=== PATIENT | female | born 1965 | race Caucasian/White ===

== ENCOUNTER → 2016-04-26 | Outpatient (CLI) | payer OTHER ==
[2016-04-26 12:10] LABS: BASO % 0.6 % (0.0-1.0); EOS # 0.7 K/mm3 (0.0-0.50); EOS % 9.4 % (0.0-3.0); LARGE UNSTAINED CELL % 0.6 % (0.0-4.0); LYMPH # 1.4 K/mm3 (1.5-4.5); LYMPH % 19.4 % (24.0-44.0); MEAN CORPUSCULAR HEMOGLOBIN 30.8 pg (27.0-33.0); MEAN CORPUSCULAR HGB CONC 32.6 g/dl (32.0-36.5); MEAN CORPUSCULAR VOLUME 94.7 fl (80.0-96.0); MONO # 0.4 K/mm3 (0.0-0.8); MONO % 5.3 % (0.0-5.0); NEUTROPHILS # 4.6 K/mm3 (1.8-7.7); NEUTROPHILS % 64.7 % (36.0-66.0); PLATELET COUNT, AUTOMATED 297 k/mm3 (150-450); RED CELL DISTRIBUTION WIDTH 15.5 % (11.5-14.5); WHITE BLOOD COUNT 7.1 K/mm3 (4.0-10.0)
== END ==
LOC: M WUC 09:55
PROVIDERS: ATTEND Internal Medicine
DX: D64.9 Anemia, unspecified (principal)

== ENCOUNTER → 2017-01-11 | Outpatient (CLI) | payer OTHER ==
--- NOTE | 2017-01-11 12:32 | REP ---
Clinical: Pain. Technique: AP, lateral, bilateral oblique views left first digit. Findings: The osseous structures and joint spaces are intact and normal. There is no evidence for acute fracture or dislocation. Surrounding soft tissues are unremarkable. No subcutaneous emphysema or radiodense foreign body. Impression: No acute fracture or dislocation. Signed by Obed Mcmahon MD 01/11/2017 12:24 P
== END ==
LOC: M WUC 11:44
PROVIDERS: ATTEND Physician Assistant
DX: M79.645 Pain in left finger(s) (principal)

== ENCOUNTER → 2017-02-24 | Outpatient (CLI) | payer OTHER | LOC: M WHC 10:21 | DX: Z12.31 Encounter for screening mammogram for malignant neoplasm of breast (principal) | CPT/HCPCS: 77067 ==

== ENCOUNTER 2017-03-01 08:04 | Day surgery (SDC) | payer OTHER ==
[2017-03-01] MEDS ORDERED: PROPOFOL 500 MG/50 ML VIAL As Ordered (08:17)
[2017-03-01] MEDS: NS 1,000 ML IV (08:25)
[2017-03-01] MEDS ORDERED: fentaNYL 100 MCG/2 ML INJECTION (J3010) As Ordered (08:58)
[2017-03-01] MEDS ORDERED: LIDOCAINE 2% INJ 100 MG/5 ML SDV (FOR ANES.) As Ordered (08:59)
== END 2017-03-01 10:25 | disposition home or self-care (01) ==
LOC: M OPP 08:04
DX: D50.9 Iron deficiency anemia, unspecified (principal); K31.7 Polyp of stomach and duodenum; I10 Essential (primary) hypertension; E78.5 Hyperlipidemia, unspecified; E11.9 Type 2 diabetes mellitus without complications; K21.9 Gastro-esophageal reflux disease without esophagitis; F32.9 Major depressive disorder, single episode, unspecified; F41.9 Anxiety disorder, unspecified; G43.909 Migraine, unspecified, not intractable, without status migrainosus; Z78.0 Asymptomatic menopausal state; Z88.0 Allergy status to penicillin; Z88.5 Allergy status to narcotic agent; Z79.899 Other long term (current) drug therapy
CPT/HCPCS: 45378

== ENCOUNTER → 2017-05-05 | Outpatient (CLI) | payer OTHER ==
[2017-05-05 16:52] LABS: BASO # 0.1 10^3/uL (0.0-0.2); BASO % 0.9 % (0.0-1.0); EOS # 0.8 10^3/uL (0.0-0.50); EOS % 7.4 % (0.0-3.0); HEMATOCRIT 32.1 % (36.0-47.0); HEMOGLOBIN 9.6 g/dl (12.0-16.0); IMMATURE GRANULOCYTE % 0.5 % (0-3.0); LYMPH % 18.2 % (24.0-44.0); MEAN CORPUSCULAR HEMOGLOBIN 27.2 pg (27.0-33.0); MEAN CORPUSCULAR HGB CONC 29.9 g/dl (32.0-36.5); MEAN CORPUSCULAR VOLUME 90.9 fl (80.0-96.0); MONO # 0.7 10^3/uL (0.0-0.8); NEUTROPHILS # 7.3 10^3/uL (1.8-7.7); PLATELET COUNT, AUTOMATED 298 10^3/uL (150-450); RED BLOOD COUNT 3.53 10^6/uL (4.00-5.40); RED CELL DISTRIBUTION WIDTH 17.1 % (11.5-14.5); WHITE BLOOD COUNT 10.9 10^3/uL (4.0-10.0)
[2017-05-05 17:09] LABS: ALBUMIN 3.8 GM/DL (3.2-5.2); ALBUMIN/GLOBULIN RATIO 1.06 (1.00-1.93); ALKALINE PHOSPHATASE 57 U/L (45-117); ALT/SGPT 33 U/L (12-78); ANION GAP 9 MEQ/L (8-16); AST/SGOT 34 U/L (7-37); BILIRUBIN,TOTAL 0.4 MG/DL (0.2-1.0); BLOOD UREA NITROGEN 20 MG/DL (7-18); CALCIUM LEVEL 8.6 MG/DL (8.5-10.1); CARBON DIOXIDE LEVEL 23 MEQ/L (21-32); CHLORIDE LEVEL 109 MEQ/L (98-107); CHOLESTEROL LEVEL 100 MG/DL (<200); CHOLESTEROL RISK RATIO 7.142 (<5); CREATININE FOR GFR 0.95 MG/DL (0.55-1.30); ESTIMATED AVERAGE GLUCOSE 105 MG/DL (60-110); GLOMERULAR FILTRATION RATE > 60.0 (>58); GLUCOSE, FASTING 125 MG/DL (70-100); HDL CHOLESTEROL 14 MG/DL (>40); HEMOGLOBIN A1c 5.3 %; LDL CHOLESTEROL 54.8 MG/DL (<100); NON-HDL-C 86 MG/DL; POTASSIUM SERUM 4.2 MEQ/L (3.5-5.1); SODIUM LEVEL 141 MEQ/L (136-145); TOTAL PROTEIN 7.4 GM/DL (6.4-8.2); TRIGLYCERIDES LEVEL 156 MG/DL (<150)
[2017-05-07 08:06] LABS: ERYTHROPOIETIN 40.2 mIU/mL (2.6-18.5)
== END ==
LOC: M WUC 11:17
DX: D64.9 Anemia, unspecified (principal); I10 Essential (primary) hypertension; R73.01 Impaired fasting glucose; E78.5 Hyperlipidemia, unspecified
CPT/HCPCS: 80053

== ENCOUNTER → 2017-05-07 | Outpatient (CLI) | payer OTHER | LOC: M WUC 09:46 | DX: R22.32 Localized swelling, mass and lump, left upper limb (principal) | CPT/HCPCS: 73130 ==

== ENCOUNTER → 2017-11-21 | Outpatient (CLI) | payer OTHER ==
[2017-11-21 17:57] LABS: ALBUMIN 3.3 GM/DL (3.2-5.2); ALBUMIN/GLOBULIN RATIO 0.97 (1.00-1.93); ALKALINE PHOSPHATASE 55 U/L (45-117); ALT/SGPT 27 U/L (12-78); ANION GAP 7 MEQ/L (8-16); AST/SGOT 21 U/L (7-37); BILIRUBIN,TOTAL 0.3 MG/DL (0.2-1.0); BLOOD UREA NITROGEN 17 MG/DL (7-18); CALCIUM LEVEL 8.1 MG/DL (8.5-10.1); CARBON DIOXIDE LEVEL 24 MEQ/L (21-32); CHLORIDE LEVEL 109 MEQ/L (98-107); CHOLESTEROL LEVEL 118 MG/DL (<200); GLOMERULAR FILTRATION RATE > 60.0 (>51); GLUCOSE, FASTING 122 MG/DL (70-100); HDL CHOLESTEROL 25 MG/DL (>40); LDL CHOLESTEROL 48 MG/DL (<100); NON-HDL-C 93 MG/DL; SODIUM LEVEL 140 MEQ/L (136-145); TOTAL PROTEIN 6.7 GM/DL (6.4-8.2); TRIGLYCERIDES LEVEL 226 MG/DL (<150)
[2017-11-21 18:05] LABS: BASO # 0.1 10^3/uL (0.0-0.2); BASO % 0.7 % (0.0-1.0); EOS # 0.5 10^3/uL (0.0-0.50); EOS % 5.5 % (0.0-3.0); HEMOGLOBIN 8.1 g/dl (12.0-15.5); IMMATURE GRANULOCYTE % 0.6 % (0-3.0); MEAN CORPUSCULAR HEMOGLOBIN 23.4 pg (27.0-33.0); MEAN CORPUSCULAR HGB CONC 27.9 g/dl (32.0-36.5); MEAN CORPUSCULAR VOLUME 83.8 fl (80.0-96.0); MONO # 0.6 10^3/uL (0.0-0.8); MONO % 6.9 % (0.0-5.0); NEUTROPHILS % 61.3 % (36.0-66.0); PLATELET COUNT, AUTOMATED 304 10^3/uL (150-450); RED BLOOD COUNT 3.46 10^6/uL (4.00-5.40); RED CELL DISTRIBUTION WIDTH 18.6 % (11.5-14.5); WHITE BLOOD COUNT 8.2 10^3/uL (4.0-10.0)
[2017-11-21 18:11] LABS: ESTIMATED AVERAGE GLUCOSE 114 MG/DL (60-110); HEMOGLOBIN A1c 5.6 %
== END ==
LOC: M WUC 13:31
DX: D64.9 Anemia, unspecified (principal); I10 Essential (primary) hypertension; E78.5 Hyperlipidemia, unspecified; R73.01 Impaired fasting glucose
CPT/HCPCS: 80053

== ENCOUNTER → 2017-11-28 | Outpatient (CLI) | payer OTHER | LOC: M RAD 14:04 | DX: D50.9 Iron deficiency anemia, unspecified (principal); N92.0 Excessive and frequent menstruation with regular cycle | CPT/HCPCS: 76856 ==

== ENCOUNTER 2017-12-26 14:11 | Emergency (ER) | payer OTHER | END 2017-12-26 14:47 | disposition home or self-care (01) | LOC: M ED 14:11 | DX: M43.6 Torticollis (principal); I10 Essential (primary) hypertension; J30.89 Other allergic rhinitis; Z79.899 Other long term (current) drug therapy; Z88.5 Allergy status to narcotic agent; Z88.0 Allergy status to penicillin | CPT/HCPCS: 99282 ==

== ENCOUNTER → 2017-12-30 | Outpatient (REF) | payer OTHER | LOC: M SFHCWAGY 14:19 | DX: N95.0 Postmenopausal bleeding (principal) ==

== ENCOUNTER 2018-03-02 14:36 | Emergency (ER) | payer OTHER ==
[~2018-03-02] VITALS: Ht 167.6 cm; Wt 116.8 kg
[~2018-03-02 14:36] MED LIST: ATOR1TAB21; CETI10TA; FENO1CAP2; IBUP-1022 PO; LISI2.5T5 PO; MECL-68; PANT40TA3 PO; SERT-138 PO; SING10TA32 PO; SOMA350T PO; TOPI100T9 PO; TRAZ-160 PO
[2018-03-02] MEDS ORDERED: IPRATROPIUM 0.5MG/ALBUTEROL 2.5MG INH SOL UD 3ML (DUONEB)(J7620) NEB ONE (15:15)
[2018-03-02] MEDS ORDERED: IBUPROFEN 600 MG TAB PO ONE (15:15)
--- NOTE | 2018-03-02 15:35 | REP ---
Chest x-ray: Two views. History: Short of breath and congestion. Comparison chest x-ray: July 07, 2015. Findings: The lungs are symmetrically aerated and clear. Pleural angles are sharp. Heart is not enlarged. No significant bony abnormality is seen. There are clips in the upper abdomen on the right consistent with cholecystectomy. Impression: No active disease. Electronically Signed by Bruce Nelson MD 03/02/2018 03:27 P
[2018-03-02 16:00] LABS: INFLUENZA A AMPLIFICATION POSITIVE (NEGATIVE); INFLUENZA B AMPLIFICATION NEGATIVE (NEGATIVE)
[2018-03-02] MEDS ORDERED: MUCI600T37 PO (16:06)
[2018-03-02] MEDS ORDERED: VENTAER INH (16:06)
[2018-03-02] MEDS ORDERED: OSEL75CA PO (16:06)
[2018-03-02] MEDS ORDERED: IBUP-1022 PO (16:06)
[2018-03-02 16:10] VITALS: BP 114/54
[2018-03-02] MEDS ORDERED: OSELTAMIVIR PHOSPHATE 75 MG CAP (TAMIFLU) PO ONE (16:15)
== END 2018-03-02 16:19 | disposition home or self-care (01) ==
LOC: M ED 14:36
DX: J09.X2 Influenza due to identified novel influenza A virus with other respiratory manifestations (principal); J20.9 Acute bronchitis, unspecified; I10 Essential (primary) hypertension; G43.909 Migraine, unspecified, not intractable, without status migrainosus; Z87.891 Personal history of nicotine dependence; Z79.899 Other long term (current) drug therapy; Z88.5 Allergy status to narcotic agent; Z88.0 Allergy status to penicillin; J30.89 Other allergic rhinitis

== ENCOUNTER 2018-03-11 16:25 | Emergency (ER) | payer OTHER ==
[~2018-03-11] VITALS: Ht 167.6 cm; Wt 115.0 kg
[~2018-03-11 16:25] MED LIST changes: +MUCI600T37 PO; +OSEL75CA PO; +VENTAER INH
[2018-03-11] MEDS ORDERED: LIDOCAINE VISCOUS 2% SOLN 15ML UDC SS ONE (17:45)
[2018-03-11 18:23] VITALS: BP 130/78
== END 2018-03-11 18:24 | disposition home or self-care (01) ==
LOC: M ED 16:25
DX: J04.0 Acute laryngitis (principal); J02.9 Acute pharyngitis, unspecified; I10 Essential (primary) hypertension

== ENCOUNTER → 2018-07-21 | Outpatient (CLI) | payer OTHER ==
[~2018-07-21] MED LIST changes: +FENO135C6; -FENO1CAP2; +LISI-1046 PO; -LISI2.5T5 PO; -MECL-68; +MECL-68 PO; +PERC5TAB12 PO; -TRAZ-160 PO; +TRAZ-252 PO
--- NOTE | 2018-07-21 20:22 | ECGEPIP ---
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
== END ==
LOC: M EKG 12:48
PROVIDERS: ATTEND Anesthesiology
DX: I10 Essential (primary) hypertension (principal)

== ENCOUNTER 2018-07-26 06:37 | Day surgery (SDC) | payer OTHER ==
[~2018-07-26] VITALS: Ht 167.6 cm; Wt 117.0 kg
[2018-07-26] VITALS (9 sets, daily range): BP systolic 105–133; BP diastolic 50–63
[~2018-07-26 06:37] MED LIST changes: +LR 1,000 ML IV ONE; -PERC5TAB12 PO
[2018-07-26] MEDS ORDERED: FLUORESCEIN 10% (100MG/ML) 5 ML VIAL As Ordered ONE (07:01)
[2018-07-26] MEDS ORDERED: BUPIVACAINE/EPIN 0.25% 30 ML VIAL As Ordered ONE (07:01)
[2018-07-26 07:10] LABS: HEMATOCRIT 37.9 % (36.0-47.0); HEMOGLOBIN 12.3 g/dl (12.0-15.5); MEAN CORPUSCULAR HEMOGLOBIN 31.9 pg (27.0-33.0); MEAN CORPUSCULAR HGB CONC 32.5 g/dl (32.0-36.5); MEAN CORPUSCULAR VOLUME 98.2 fl (80.0-96.0); PLATELET COUNT, AUTOMATED 208 10^3/uL (150-450); RED BLOOD COUNT 3.86 10^6/uL (4.00-5.40); WHITE BLOOD COUNT 6.4 10^3/uL (4.0-10.0)
[2018-07-26 07:39] LABS: BLOOD UREA NITROGEN 13 MG/DL (7-18); CALCIUM LEVEL 8.7 MG/DL (8.5-10.1); CARBON DIOXIDE LEVEL 26 MEQ/L (21-32); CHLORIDE LEVEL 110 MEQ/L (98-107); CREATININE FOR GFR 0.98 MG/DL (0.55-1.30); GLOMERULAR FILTRATION RATE > 60.0 (>51); GLUCOSE, FASTING 129 MG/DL (70-100); POTASSIUM SERUM 3.5 MEQ/L (3.5-5.1); SODIUM LEVEL 142 MEQ/L (136-145)
[2018-07-26] MEDS ORDERED: ACETAMINOPHEN *IV* 1,000 MG IV ONE ×2 (07:45)
[2018-07-26] MEDS ORDERED: ACETAMINOPHEN 1000MG 100ML IV BTL (OFIRMEV) (J0131 PER 10MG) As Ordered ONE (08:56)
[2018-07-26] MEDS ORDERED: HYDROmorphone HCL 2 MG/ML 1ML VIAL (J1170) As Ordered ONE (08:56)
[2018-07-26] MEDS ORDERED: ROCURONIUM BROMIDE 50 MG/5 ML VIAL As Ordered ONE (08:56)
[2018-07-26] MEDS ORDERED: fentaNYL 100 MCG/2 ML INJECTION (J3010) As Ordered ONE ×2 (08:56→10:31)
[2018-07-26] MEDS ORDERED: dexameTHASONE 4 MG/ML 1ML VIAL (J1100) As Ordered ONE (08:56)
[2018-07-26] MEDS ORDERED: PROPOFOL 200 MG/20 ML VIAL As Ordered ONE (08:56)
[2018-07-26] MEDS ORDERED: MIDAZOLAM INJ 2 MG/2 ML VIAL (J2250) As Ordered ONE (08:56)
[2018-07-26] MEDS ORDERED: LIDOCAINE 2% INJ 100 MG/5 ML SDV (FOR ANES.) As Ordered ONE (08:56)
[2018-07-26] MEDS ORDERED: ONDANSETRON 4MG/2ML VIAL (J2405) As Ordered ONE (09:02)
[2018-07-26] MEDS ORDERED: LABETALOL HCL 100 MG/20 ML VIAL As Ordered ONE (09:45)
[2018-07-26] MEDS ORDERED: SUGAMMADEX SODIUM 500 MG/5 ML VIAL (BRIDION) As Ordered ONE (10:00)
[2018-07-26] MEDS ORDERED: PERC5TAB12 PO (10:53)
[2018-07-26] MEDS ORDERED: METOCLOPRAMIDE INJ 10MG/2ML VIAL (J2765) IV PRN (11:15)
[2018-07-26] MEDS ORDERED: fentaNYL 100 MCG/2 ML INJECTION (J3010) IV PRN (11:15)
[2018-07-26] MEDS ORDERED: PROMETHAZINE INJ 25 MG/ML VIAL (J2550) IV PRN (11:15)
[2018-07-26] MEDS ORDERED: LR 1,000 ML IV SCH ×2 (11:15→11:30)
[2018-07-26] MEDS ORDERED: KETOROLAC 30 MG/ML VIAL (J1885) As Ordered ONE (11:31)
[2018-07-26] MEDS ORDERED: IBUPROFEN 800 MG TAB PO SCH (12:00)
[2018-07-26] MEDS ORDERED: KETOROLAC 30 MG/ML VIAL (J1885) IV PRN (12:00)
[2018-07-26] MEDS: traMADol 50 MG TAB PO PRN ×3 (12:15→21:29)
--- NOTE | 2018-07-26 12:48 | RO ---
DATE OF PROCEDURE: 07/26/2018 Candice is a 53-year-old female with extensive history of abnormal uterine bleeding, symptomatic anemia, and morbid obesity. Patient also had two prior sections and cholecystectomy. After extensive counseling in the office, a decision was made to proceed with robotic-assisted total hysterectomy, bilateral salpingo-oophorectomy, and cystoscopy. PREOPERATIVE DIAGNOSES: 1. Excessive menstruation 2. Symptomatic anemia. 3. Morbid obesity. 4. Multiple prior intra-abdominal surgery. POSTOPERATIVE DIAGNOSES: 1. Excessive menstruation 2. Symptomatic anemia. 3. Morbid obesity. 4. Multiple prior intra-abdominal surgery. 5. Dense omental and pelvic adhesions. PROCEDURE: 1. Robotic-assisted total hysterectomy. 2. Bilateral salpingo-oophorectomy. 3. Cystoscopy. 4. Extensive lysis of adhesions. SURGEON: Dr. Gilson Ramirez BARREL ASSEMBLER: Clara Coyle ANESTHESIA: General. COMPLICATION: None. ESTIMATED BLOOD LOSS: Less than 50 mL. SPECIMEN SENT TO THE LAB: The uterus, cervix, bilateral tubes, and ovaries. FINDING: An enlarged uterus with normal-appearing ovary, and a small right ovarian cyst. Dense omental and bladder adhesions were noted. On cystoscopy, bilateral ureteral jets noted. No evidence of any bladder injury. DESCRIPTION OF PROCEDURE: After obtaining informed consent, patient was taken to the operating room where general anesthetic was found to be adequate. She was then draped and prepped in usual sterile fashion in dorsal lithotomy position. At this point, a Mckinley catheter was placed in the bladder for drainage. We then placed a weighted speculum. A HUMI II uterine manipulator was placed. Attention was then turned to the abdomen, where the abdomen was insufflated with CO2 gas at the umbilicus through a Veress needle. We then put an 8 mm supraumbilical incision for the camera trocar. The trocar was inserted under direct visualization. At this point, two left lateral ports were placed one for robotic arm 1 and the other for assist port. On the right side, an 8 mm right lateral port was placed for robotic arm 2. Patient was placed in Trendelenburg. Dense omental bowel and pelvic adhesions noted. At this point using the REKHA Harmonic scalpel, we were able to take the incision down from above the umbilicus all the way down to the pelvis. The bladder adhesions were also noted. These were taken down. After removing these adhesions and given that we were able now to dock the robot, the robot was brought to the patient's side in a 45 degrees angle. Proper targeting was done after placement of the camera port and the camera. We then placed robotic arm 1 and 2. After docking those arms, a vessel sealer vessel sealer was placed in arm 2 and a bipolar grasper in arm 1. I then unscrubbed and went to the surgeon console to began the surgery. The infundibular pelvic ligament was identified on the left side. Adhesions were also noted. These were taken down using the vessel sealer. The infundibulopelvic ligament was cauterized and cut. This was taken all the way down to the uterine artery. The round ligament was also cauterized in a similar fashion. At this point, we attempted at creating a bladder flap anteriorly. To the due to the adhesions, we were not able to do it at that time, so the uterine arteries were secure on the left side. I then turned my attention to the right side, which in a similar fashion, the infundibulopelvic ligament, the round ligament, as well as the uterine arteries were coagulated and cut using the vessel sealer. At this point, I was able to dissect the anterior leaflet of the broad ligament creating a bladder flap. The bladder was gently pushed out of the operative field avoiding injuries. The posterior aspect was done in a similar fashion. The vessel sealer was then removed and EndoShear was inserted. An anterior and posterior colpotomy was performed. The uterus as well as bilateral fallopian tubes and ovaries were removed through the vagina. The EndoShear removed. The needle auto driver inserted through arm 1, as well as a #2-0 V-Loc suture, and the vaginal cuff was then closed in running fashion using two V-Loc suture. 1 mL of Furacin was given by the anesthesiologist to assist in the cystoscopy. I then rescrubbed and went to the patient's side, retrograde filled the bladder to 250 mL of normal saline. A cystoscopy was performed. Bilateral ureteral jets noted. No evidence of any bladder injury noted. At this point, the cystoscope was removed. Mckinley catheter placed back in the bladder, and I then turned my attention to the abdomen, where the robotic ports were then closed using #2-0 Vicryl in subcuticular fashion. 0.25% Marcaine was placed for postoperative pain. Dermabond placed. Patient tolerated procedure well. She was then transferred to recovery room in stable condition.
[2018-07-26] MEDS: SIMETHICONE 80 MG CHEW TAB PO SCH ×2 (13:19→18:31)
[2018-07-26] MEDS: IBUPROFEN 800 MG TAB PO SCH (18:31)
[2018-07-26] MEDS ORDERED: ATORVASTATIN 20 MG TAB PO SCH (21:00)
[2018-07-26] MEDS ORDERED: MONTELUKAST 10 MG TAB PO SCH (21:00)
[2018-07-26] MEDS ORDERED: CETIRIZINE (ZyrTEC) 10 MG TAB PO SCH (21:00)
[2018-07-26] MEDS ORDERED: LISINOPRIL *2.5 MG* TAB PO SCH (21:00)
[2018-07-26] MEDS ORDERED: PANTOPRAZOLE 40MG TAB (PROTONIX) PO SCH (21:00)
[2018-07-26] MEDS ORDERED: TOPIRAMATE (TopAMAX) 100 MG TAB PO SCH (21:00)
[2018-07-26] MEDS ORDERED: traZODone 50 MG TAB PO SCH (21:00)
[2018-07-26] MEDS ORDERED: SERTRALINE 100 MG TAB PO SCH (21:00)
[2018-07-27] VITALS: BP 119/56
[2018-07-27] MEDS: IBUPROFEN 800 MG TAB PO SCH ×2 (00:14→06:39)
[2018-07-27] MEDS: SIMETHICONE 80 MG CHEW TAB PO SCH ×2 (00:14→06:38)
[2018-07-27] MEDS: traMADol 50 MG TAB PO PRN ×2 (04:34→08:41)
[2018-07-27 05:00] VITALS: BP 98/52
[2018-07-27 08:00] VITALS: BP 123/62
[2018-07-27] MEDS ORDERED: traZODone 50 MG TAB PO SCH (21:00)
[2018-07-27] MEDS ORDERED: TOPIRAMATE (TopAMAX) 100 MG TAB PO SCH (21:00)
== END 2018-07-27 11:05 | disposition home or self-care (01) ==
LOC: M SDC 06:37 → M PED 12:32 → M SDC 07-27 11:05
PROVIDERS: ATTEND Obstetrics & Gynecology
DX: N92.1 Excessive and frequent menstruation with irregular cycle (principal); D50.0 Iron deficiency anemia secondary to blood loss (chronic); E66.09 Other obesity due to excess calories; N73.6 Female pelvic peritoneal adhesions (postinfective); N83.01 Follicular cyst of right ovary; N84.0 Polyp of corpus uteri; I10 Essential (primary) hypertension; E78.00 Pure hypercholesterolemia, unspecified; K21.9 Gastro-esophageal reflux disease without esophagitis; F41.9 Anxiety disorder, unspecified; F32.9 Major depressive disorder, single episode, unspecified; G43.909 Migraine, unspecified, not intractable, without status migrainosus; Z88.0 Allergy status to penicillin; Z88.5 Allergy status to narcotic agent; Z91.09 Other allergy status, other than to drugs and biological substances; Z79.899 Other long term (current) drug therapy; Z98.51 Tubal ligation status
CPT/HCPCS: 36415; 58571; 58660; 80048; 85027; 86850; 86900; 86901; 88307; J0131; J0690; J1100; J1170; J1885; J2250; J2405; J3010

== ENCOUNTER 2018-09-10 22:55 | Emergency (ER) | payer OTHER ==
[~2018-09-10] VITALS: Ht 167.6 cm; Wt 119.6 kg
[~2018-09-10 22:55] MED LIST changes: -LR 1,000 ML IV ONE; +PERC5TAB12 PO
[2018-09-10 22:56] VITALS: BP 128/75
[2018-09-10] MEDS ORDERED: CORTISPORIN OTIC SOLN 10 ML BTL AS ONE (23:45)
== END 2018-09-11 00:04 | disposition home or self-care (01) ==
LOC: M ED 22:55
DX: H60.92 Unspecified otitis externa, left ear (principal); I10 Essential (primary) hypertension; F41.9 Anxiety disorder, unspecified; K21.9 Gastro-esophageal reflux disease without esophagitis; J30.89 Other allergic rhinitis; Z79.899 Other long term (current) drug therapy; Z88.0 Allergy status to penicillin; Z88.5 Allergy status to narcotic agent

== ENCOUNTER 2018-12-12 18:38 | Emergency (ER) | payer OTHER ==
[~2018-12-12] VITALS: Ht 167.6 cm; Wt 119.3 kg
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
[2018-12-12] MEDS ORDERED: ACETAMINOPHEN TAB 650MG DOSE (2X325MG) PO ONE (20:00)
[2018-12-12] MEDS ORDERED: IBUPROFEN 600 MG TAB PO ONE (21:15)
[2018-12-12 21:18] VITALS: BP 126/81
--- NOTE | 2018-12-13 07:45 | REP ---
Clinical: Trauma. Technique: Two views of the right clavicle. Findings: No acute fracture or dislocation. Sternoclavicular and acromioclavicular joints are within normal limits for age. Impression: No acute fracture or dislocation. Electronically Signed by Obed Mcmahon MD 12/13/2018 07:36 A
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
== END 2018-12-12 21:22 | disposition home or self-care (01) ==
LOC: M ED 18:38
DX: M54.2 Cervicalgia (principal); M25.511 Pain in right shoulder; S13.4XXA Sprain of ligaments of cervical spine, initial encounter; Z87.828 Personal history of other (healed) physical injury and trauma; I10 Essential (primary) hypertension; K21.9 Gastro-esophageal reflux disease without esophagitis; E11.9 Type 2 diabetes mellitus without complications; F41.9 Anxiety disorder, unspecified; F32.9 Major depressive disorder, single episode, unspecified; Z88.5 Allergy status to narcotic agent; Z88.0 Allergy status to penicillin; Y93.89 Activity, other specified; Y92.410 Unspecified street and highway as the place of occurrence of the external cause

== ENCOUNTER → 2019-02-05 | Outpatient (CLI) | payer OTHER ==
--- NOTE | 2019-02-05 12:14 | REPVR ---
PROCEDURE INFORMATION: Exam: MR Cervical Spine Without Contrast Exam date and time: 02/05/2019 10:44 AM Age: 53 years old Clinical indication: Patient HX: Neck pain, stiffness, ; additional info: Cervicalgia TECHNIQUE: Imaging protocol: Multiplanar magnetic resonance images of the cervical spine without contrast. COMPARISON: CT Spine,cervical w/o contrast 12/12/2018 7:18 PM FINDINGS: Vertebral body heights are intact. Straightening of the cervical lordotic curve could be secondary to muscle spasm or positioning. Alignment is otherwise maintained. The cervicomedullary junction appears unremarkable. The spinal cord appears normal in signal. There are varying degrees of disc desiccation indicating intervertebral disc degeneration. There is a 1.3 cm hemangioma in the T2 vertebral body. C2-3: No significant disc displacement. C3-4: Very small bulge leading to very mild right neural foraminal narrowing without significant spinal stenosis. C4-5: Small bulge leading to very mild bilateral neural foraminal narrowing without significant spinal stenosis. C5-6: Disc osteophyte complex combined with uncinate hypertrophy to lead to mild right and very mild left neural foraminal narrowing without significant spinal stenosis. C6-7: Very small bulge leading to very mild bilateral neural without C7-T1: No significant disc displacement. If surgery is considered, recommend level confirmation. IMPRESSION: Multilevel disc desiccation indicating intervertebral disk degeneration with disc displacements as described. Electronically signed by: Steve Lakhani On 02/05/2019 12:13:53 PM
== END ==
LOC: M RAD 09:50
PROVIDERS: ATTEND Physician Assistant
DX: M50.323 Other cervical disc degeneration at C6-C7 level (principal); M50.322 Other cervical disc degeneration at C5-C6 level; M50.321 Other cervical disc degeneration at C4-C5 level; M50.31 Other cervical disc degeneration, high cervical region; M25.78 Osteophyte, vertebrae

== ENCOUNTER → 2019-11-07 | Outpatient (CLI) | payer OTHER ==
[~2019-11-07] MED LIST changes: -LISI-1046 PO; +LISI2.5T2 PO; -MECL-68 PO; +MECL1TAB31 PO; +PANT40TA29 PO; -PANT40TA3 PO
--- NOTE | 2019-11-07 15:23 | REPMRS ---
Patient History The patient states she has not had a clinical breast exam in over a year. Family history of breast cancer in maternal aunt, colorectal cancer in maternal cousin. Taking estrogen for 1 year. 3D TOMOSYNTHESIS WAS PERFORMED. The Milena Moody lifetime risk for breast cancer is 10.8%. Gisela ugalde. Digital Woman Screen Mammo: November 07, 2019 - Exam #: [id number] Bilateral CC and MLO view(s) were taken. Technologist: Tanvi Jimenez, Technologist Prior study comparison: February 24, 2017, digital woman screen mammo performed at [facility]. March 07, 2015, digital bilateral screening mammo, performed at [facility]. FINDINGS: The breast tissue is heterogeneously dense. This may lower the sensitivity of mammography. There has been no change in the appearance of the mammogram from the prior studies. There is a moderate amount of residual fibroglandular tissue which is fairly symmetric. There is no interval development of dominant mass, areas of architectural distortion, or clustered microcalcification typical of malignancy. Assessment: BI-RADS/ACR category 1 mammogram. Negative Mammogram. Recommendation Routine screening mammogram in 1 year (for women over age 40). This mammogram was interpreted with the aid of an FDA-approved computer-aided dectection system. Electronically Signed By: Luiz Wang MD 11/07/19 0917
== END ==
LOC: M WHC 13:29
PROVIDERS: ATTEND Internal Medicine
DX: Z12.31 Encounter for screening mammogram for malignant neoplasm of breast (principal)

== ENCOUNTER → 2019-11-09 | Outpatient (CLI) | payer OTHER ==
--- NOTE | 2019-11-28 08:44 | REP ---
DATE: 11/09/2019 LEFT FOOT SERIES HISTORY: Swelling for 4 hours. REPORT: Four views of the left foot performed. There is no acute fracture or dislocation. There is mild calcification at the distal end of the Achilles tendon at its insertion to the posterior calcaneus. There is a small inferior calcaneal spur. There is mild narrowing at the first metatarsophalangeal joint. There is diffuse soft tissue swelling. IMPRESSION: Soft tissue swelling and mild degenerative changes. No fracture or dislocation. [facility]
--- NOTE | 2019-11-28 08:45 | REP ---
DATE: 11/09/2019 LEFT ANKLE SERIES HISTORY: Swelling for four hours. REPORT: Four views of the left ankle were performed. No acute fracture or dislocation is seen. The ankle mortise is anatomic. There is mild soft tissue swelling. There is mild calcification at the distal end of the Achilles tendon at its insertion onto the posterior calcaneus. There is mild inferior calcaneal spurring. IMPRESSION: Mild soft tissue swelling and degenerative change. No fracture or dislocation. [facility]
== END ==
LOC: M WUC 18:38
PROVIDERS: ATTEND Nurse Practitioner Family
DX: M25.572 Pain in left ankle and joints of left foot (principal)

== ENCOUNTER → 2020-05-08 | Outpatient (CLI) | payer OTHER ==
--- NOTE | 2020-05-08 17:31 | REPVR ---
PROCEDURE INFORMATION: Exam: MR Cervical Spine Without Contrast Exam date and time: 05/08/2020 2:13 PM Age: 54 years old Clinical indication: Radicular pain (radiculopathy); Cervical region; Additional info: Radiculopathy, R/O hnp and stenosis TECHNIQUE: Imaging protocol: Multiplanar magnetic resonance images of the cervical spine without contrast. COMPARISON: MRI-Spine,Cervical without con 02/05/2019 10:11 AM FINDINGS: Vertebrae: Anatomic alignment. No acute fracture seen. There is a T2 atypical hemangioma. Spinal cord: Normal signal. No cord compression. Disc desiccation throughout. Disc height loss and spondylosis is mild at C5-C6. C2-C3: No significant interval change. No stenoses. C3-C4: No significant interval change. Mild disc bulge does not contribute to central spinal canal stenosis. The neural foramina are patent. C4-C5: Mild disc bulge does not contribute to central spinal canal stenosis. Mild right uncovertebral and facet arthropathy causing mild right neural foraminal stenosis. The left neural foramen remains patent. C5-C6: No significant interval change. Mild posterior disc osteophyte complex. Central spinal canal stenosis is mild. Uncovertebral and facet arthropathy causing mild left neural foraminal stenosis. No significant right neural foraminal narrowing. C6-C7: No significant interval change. Mild disc bulge and facet arthropathy. No stenoses. C7-T1: No significant interval change. Moderate left facet arthropathy causing mild left neural foraminal stenosis. Central spinal canal and right foramen are patent. Soft tissues: Unremarkable. Vertebral arteries: Expected flow voids in the vertebral arteries. IMPRESSION: 1. Images are mildly motion degraded. 2. No significant interval change. Mild degenerative changes without high-grade stenoses. Electronically signed by: Minal Kim On 05/08/2020 17:30:42 PM
== END ==
LOC: M PLARAD 11:58
PROVIDERS: ATTEND Physician Assistant
DX: M54.12 Radiculopathy, cervical region (principal)

== ENCOUNTER 2020-09-27 19:25 | Emergency (ER) | payer OTHER ==
[~2020-09-27] VITALS: Ht 162.6 cm; Wt 108.1 kg
[~2020-09-27 19:25] MED LIST changes: -LISI2.5T2 PO; +LISI2.5T9 PO
[2020-09-27] MEDS ORDERED: KETOROLAC 30 MG/ML 1ML VIAL IV ONE (20:30)
[2020-09-27 21:04] LABS: BASO # 0.1 10^3/uL (0.0-0.2); BASO % 0.6 % (0.0-1.0); EOS # 0.2 10^3/uL (0.0-0.5); EOS % 2.4 % (0.0-3.0); HEMATOCRIT 42.6 % (36.0-47.0); HEMOGLOBIN 13.7 g/dl (12.0-15.5); LYMPH # 1.1 10^3/uL (1.5-5.0); LYMPH % 13.1 % (24.0-44.0); MEAN CORPUSCULAR HEMOGLOBIN 30.4 pg (27.0-33.0); MEAN CORPUSCULAR HGB CONC 32.2 g/dl (32.0-36.5); MEAN CORPUSCULAR VOLUME 94.5 fl (80.0-96.0); MONO # 0.4 10^3/uL (0.0-0.8); MONO % 5.3 % (2.0-8.0); NEUTROPHILS # 6.3 10^3/uL (1.5-8.5); NEUTROPHILS % 78.3 % (36.0-66.0); PLATELET COUNT, AUTOMATED 227 10^3/uL (150-450); RED BLOOD COUNT 4.51 10^6/uL (4.00-5.40)
[2020-09-27 21:30] LABS: ALT/SGPT 119 U/L (12-78); BILIRUBIN,DIRECT 0.2 MG/DL (0.0-0.2); BILIRUBIN,TOTAL 0.4 MG/DL (0.2-1.0); CK-MB VALUE MASS < 1.0 NG/ML (<3.6); CPK CREATINE PHOSPHOKINASE 84 U/L (26-192); LIPASE 328 U/L (73-393); MB/CK RELATIVE INDEX 1.19 (< OR =4); TOTAL PROTEIN 7.5 GM/DL (6.4-8.2); TROPONIN I < 0.02 NG/ML (< 0.10)
[2020-09-27] MEDS ORDERED: ISOVUE-370 76% 100ML VIAL As Ordered ONE (22:48)
--- NOTE | 2020-09-27 23:25 | REPVR ---
PROCEDURE INFORMATION: Exam: US Abdomen, Limited; Right Upper Quadrant Exam date and time: 09/27/2020 11:00 PM Age: 55 years old Clinical indication: Abdominal pain; Epigastric; Prior surgery; Surgery date: 6+ months; Surgery type: S/P cholecystectomy; Additional info: Ruq abd pain, elevated liver enzymes TECHNIQUE: Imaging protocol: US abdomen. Real time ultrasound with image documentation. Limited exam focused on the right upper quadrant. COMPARISON: CT ABD PELVIS W/O CONTRAST 07/15/2015 12:27 AM FINDINGS: Liver: Echogenic, consistent with fatty infiltration. Gallbladder: Surgically absent. Common bile duct: No stones. No ductal dilatation. Pancreas: Unremarkable as visualized. Right kidney: No mass. No definite stones. No hydronephrosis. IMPRESSION: No acute sonographic findings. Electronically signed by: Steve Lea On 09/27/2020 23:24:39 PM
--- NOTE | 2020-09-27 23:32 | REPVR ---
PROCEDURE INFORMATION: Exam: CT Abdomen And Pelvis With Contrast Exam date and time: 09/27/2020 11:03 PM Age: 55 years old Clinical indication: Abdominal pain; Localized; Right upper quadrant (ruq); Additional info: Ruq pain, epigastric pain TECHNIQUE: Imaging protocol: Computed tomography of the abdomen and pelvis with contrast. Axial, coronal and sagittal reformatted images were created and reviewed. Radiation optimization: All CT scans at this facility use at least one of these dose optimization techniques: automated exposure control; mA and/or kV adjustment per patient size (includes targeted exams where dose is matched to clinical indication); or iterative reconstruction. Contrast material: ISOVUE 370; Contrast volume: 100 ml; Contrast route: INTRAVENOUS (IV); COMPARISON: CT ABD PELVIS W/O CONTRAST 07/15/2015 12:27 AM FINDINGS: Liver: Diffuse hepatic steatosis. Gallbladder and bile ducts: Status post cholecystectomy. No biliary ductal dilatation. Pancreas: Unremarkable. Spleen: Unremarkable. Adrenal glands: Normal. No mass. Kidneys and ureters: 6 mm low-density left renal lesion, too small to characterize. No radiodense calculi. No hydronephrosis. Stomach and bowel: Questionable mild nonspecific gastric antral wall thickening versus under distention. Moderate amount of retained stool in the colon. No obstruction. No pneumatosis. Appendix: Normal. Intraperitoneal space: No free fluid. No organized fluid collection. No free air. Vasculature: Unremarkable. No aneurysm. Lymph nodes: No pathologically enlarged lymph nodes. Urinary bladder: Unremarkable as visualized. Reproductive: Status post hysterectomy. Bones/joints: No acute osseous abnormality. Mild degenerative changes. Soft tissues: Unremarkable. IMPRESSION: 1. Questionable mild nonspecific gastric antral wall thickening versus under distention. Mild gastritis could produce this appearance. 2. Additional findings, as above. COMMENTS: Consistent with the [employer]'s Incidental Findings Committee white paper (J Am María Radiol 2018): Any incidental renal lesion less than 1 cm or classified as too small to characterize, or any incidental cystic renal lesion characterized as simple-appearing, is likely benign. No follow-up imaging is recommended for these lesions per consensus recommendations based on imaging criteria. Electronically signed by: Steve Lea On 09/27/2020 23:31:45 PM
[2020-09-27] MEDS ORDERED: MORPHINE 4 MG/ML 1ML VIAL/SYRINGE (J2270) IV PRN (23:55)
[2020-09-27] MEDS ORDERED: METOCLOPRAMIDE INJ 10MG/2ML VIAL (J2765 PER 1) IV ONE (23:55)
[2020-09-28] MEDS ORDERED: PANTOPRAZOLE 40MG VIAL (C9113 PER 1) IV ONE (01:55)
[2020-09-28] MEDS ORDERED: SUCRALFATE SUSP 1GM/10ML UD PO ONE (01:55)
[2020-09-28] MEDS ORDERED: FAMOTIDINE IV BAG 20 MG in IV 1 EA IV ONE (01:55)
[2020-09-28] MEDS ORDERED: CARA1TAB6 PO (01:57)
[2020-09-28] MEDS ORDERED: PEPC1TAB5 PO (01:57)
[2020-09-28 02:30] VITALS: BP 149/88
--- NOTE | 2020-09-28 08:44 | ECGEPIP ---
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
--- NOTE | 2020-09-29 12:59 | ED PDOC ---
Post-Departure Follow-Up dr espinoza faxed formal report of ct abd/p for fu Chey Foy MD Sep 29, 2020 12:59
== END 2020-09-28 02:41 | disposition home or self-care (01) ==
LOC: M ED 19:25
DX: K29.00 Acute gastritis without bleeding (principal); E11.9 Type 2 diabetes mellitus without complications; I10 Essential (primary) hypertension; K21.9 Gastro-esophageal reflux disease without esophagitis; Z79.899 Other long term (current) drug therapy; Z88.6 Allergy status to analgesic agent
CPT/HCPCS: 74177; 76705; 80047; 80076; 82550; 82553; 83690; 85025; 93005; 93041; 96365; 96375; 99285; C9113; J1885; J2270; Q9967

== ENCOUNTER → 2020-12-08 | Outpatient (CLI) | payer OTHER ==
[~2020-12-08] MED LIST changes: +CARA1TAB6 PO; +METF500T13 PO; +PEPC1TAB5 PO; +SERT50TA29 PO
== END ==
LOC: M LABSMTC 09:37
PROVIDERS: ATTEND Anesthesiology
DX: Z01.812 Encounter for preprocedural laboratory examination (principal); Z20.822 Contact with and (suspected) exposure to COVID-19

== ENCOUNTER 2020-12-12 07:04 | Day surgery (SDC) | payer OTHER ==
[~2020-12-12] VITALS: Ht 165.1 cm; Wt 106.2 kg
[~2020-12-12 07:04] MED LIST changes: +CLINDAMYCIN 900 MG in IV 1 EA IV ONE; +LR 1,000 ML IV ONE; +dexameTHASONE 4 MG/ML 1ML VIAL (J1100 PER 1MG) IV ONE
[2020-12-12] MEDS ORDERED: fentaNYL 100 MCG/2 ML INJECTION (J3010) As Ordered ONE (08:08)
[2020-12-12] MEDS ORDERED: MIDAZOLAM INJ 2MG/2ML VIAL (J2250 PER 1MG) As Ordered ONE (08:08)
[2020-12-12] MEDS ORDERED: ROCURONIUM BROMIDE 50 MG/5 ML VIAL As Ordered ONE (08:09)
[2020-12-12] MEDS ORDERED: propofoL 200 MG/20 ML VIAL As Ordered ONE ×2 (08:09→10:57)
[2020-12-12] MEDS ORDERED: LIDOCAINE 2% 100MG/5ML SDV (FOR ANES.) As Ordered ONE (08:09)
[2020-12-12] MEDS ORDERED: ONDANSETRON 4MG/2ML VIAL As Ordered ONE (08:09)
[2020-12-12] MEDS ORDERED: dexameTHASONE 4 MG/ML 1ML VIAL (J1100 PER 1MG) As Ordered ONE (08:09)
[2020-12-12] MEDS ORDERED: ESMOLOL INJ 100MG/10ML VIAL As Ordered ONE (08:14)
[2020-12-12] MEDS ORDERED: LIDOCAINE 2% W/ EPINEPHRINE 1.7 ML DENTAL INJ As Ordered ONE (09:44)
[2020-12-12] MEDS ORDERED: CHLORHEXIDINE GLUCONATE 0.12 % 15ML UDC (PERIDEX ORAL RINSE) As Ordered ONE (09:45)
[2020-12-12] MEDS ORDERED: LABETALOL 100MG/20ML VIAL As Ordered ONE (10:35)
[2020-12-12] MEDS ORDERED: METOCLOPRAMIDE INJ 10MG/2ML VIAL (J2765 PER 1) As Ordered ONE (10:43)
[2020-12-12] MEDS ORDERED: ACETAMINOPHEN 1000MG 100ML IV BTL (OFIRMEV) (J0131 PER 10MG) As Ordered ONE (10:44)
[2020-12-12] MEDS ORDERED: KETOROLAC 60MG 2ML VIAL As Ordered ONE (10:46)
[2020-12-12] MEDS ORDERED: SUGAMMADEX SODIUM 500 MG/5 ML VIAL (BRIDION) As Ordered ONE (10:46)
[2020-12-12] MEDS ORDERED: ePHEDrine SULFATE 25 MG/5 ML(5MG/ML) SYRINGE As Ordered ONE (11:22)
[2020-12-12] MEDS ORDERED: ONDANSETRON 4MG/2ML VIAL IV PRN (11:55)
[2020-12-12] MEDS ORDERED: LR 1,000 ML IV SCH (11:55)
[2020-12-12] MEDS: fentaNYL 100 MCG/2 ML INJECTION (J3010) IV PRN ×2 (12:07→12:22)
[2020-12-12] MEDS ORDERED: oxyCODONE 5MG TAB PO PRN (12:30)
--- NOTE | 2020-12-12 12:39 | RO ---
OPERATIVE NOTE DATE OF OPERATION: 12/12/2020 PREOPERATIVE DIAGNOSES: 1. Hopeless dentition including teeth #4, 6, 8, 9, 10, 11, 12, 17, 18, 20, 21, 22, 23, 24, 25, 26, 27 and 28. 2. Severe dental anxiety as well as morbid obesity and multiple comorbidities. POSTOPERATIVE DIAGNOSES: Status post: 1. Hopeless dentition including teeth #4, 6, 8, 9, 10, 11, 12, 17, 18, 20, 21, 22, 23, 24, 25, 26, 27 and 28. 2. Severe dental anxiety as well as morbid obesity and multiple comorbidities. PROCEDURE PERFORMED: Extraction of all the aforementioned teeth. SURGEON: Justus Smith DMD, MD CABLE TENDER: ANESTHESIA: General endotracheal anesthesia via nasal CAYDEN. SPECIMEN: Teeth for gross only. INDICATIONS FOR SURGERY: Candice is a pleasant 55-year-old female who was referred to my office for evaluation for extraction of all of her teeth. She does report daily pain and swelling and inability to eat on daily basis due to the tooth pain and she desires to have all of her teeth removed under general anesthesia due to her severe dental anxiety. Due to her morbid obesity and difficult airway she is not a candidate for any office anesthesia. I did offer local and nitrous in the office, she did decline and wants general anesthesia. All the risks, benefits and alternatives were explained to the patient; detailed informed consent was gone over and was signed by the patient. A history and physical was performed and is in the patient's chart. DESCRIPTION OF PROCEDURE: The patient was taken back to the operating room. She was laid supine on the operating room table. Ulnar nerve protectors were placed. Noninvasive cardiac monitors were applied. At that point, the patient underwent general anesthesia and was intubated with a nasal CAYDEN. She was prepped and draped in the usual sterile fashion. A time out procedure was performed to identify the patient, the procedure and any other precautions. Preoperative antibiotics and steroids were administered. 8 carpules of 2% lidocaine with 1:100,000 Epinephrine were administered as local infiltrations and blocks. A full thickness flap was released at sites #4, 6, 11, 12, 17, 18, 20, 21, 22, 27 and 28. A small buccal trough was made in each tooth site; teeth were luxated and delivered without any incident. At this point all the sockets were curetted and irrigated. No sinus exposure was noted. Flaps were closed with 3-0 chromic sutures. Routine forceps extraction of teeth #23, 24, 25, and 26 was performed. The sockets were curetted and irrigated. At this point the oral cavity was once again irrigated and suctioned. The throat pack was removed. The patient was awakened from general anesthesia and taken back to the PACU without any incident. ESTIMATED BLOOD LOSS: 20 mL. DRAINS: No drains placed. COMPLICATIONS: None to mention at the time of surgery.
[2020-12-12 13:40] VITALS: BP 125/75
== END 2020-12-12 13:55 | disposition home or self-care (01) ==
LOC: M SDC 07:04
PROVIDERS: ATTEND Dentist
DX: K02.9 Dental caries, unspecified (principal); I10 Essential (primary) hypertension; E11.9 Type 2 diabetes mellitus without complications; K31.84 Gastroparesis; K21.9 Gastro-esophageal reflux disease without esophagitis; D64.9 Anemia, unspecified; G43.909 Migraine, unspecified, not intractable, without status migrainosus; G40.909 Epilepsy, unspecified, not intractable, without status epilepticus; Z79.84 Long term (current) use of oral hypoglycemic drugs; Z79.899 Other long term (current) drug therapy; Z88.0 Allergy status to penicillin; Z88.5 Allergy status to narcotic agent; E66.01 Morbid (severe) obesity due to excess calories; F41.9 Anxiety disorder, unspecified; F32.9 Major depressive disorder, single episode, unspecified
CPT/HCPCS: 88300; D7210; D9223; J0131; J1100; J1885; J2250; J2405; J2765; J3010

== ENCOUNTER 2021-07-08 19:53 | Emergency (ER) | payer OTHER ==
[~2021-07-08] VITALS: Ht 162.6 cm; Wt 112.9 kg
[~2021-07-08 19:53] MED LIST changes: -CLINDAMYCIN 900 MG in IV 1 EA IV ONE; -LR 1,000 ML IV ONE; -dexameTHASONE 4 MG/ML 1ML VIAL (J1100 PER 1MG) IV ONE
[2021-07-09 01:15] VITALS: BP 162/96
== END 2021-07-09 02:52 | disposition left against medical advice (07) ==
LOC: M ED 19:53
DX: Z53.21 Procedure and treatment not carried out due to patient leaving prior to being seen by health care provider (principal)

== ENCOUNTER → 2021-08-13 | Outpatient (CLI) | payer OTHER | LOC: M WHC 12:00 | PROVIDERS: ATTEND Internal Medicine | DX: Z12.31 Encounter for screening mammogram for malignant neoplasm of breast (principal) ==

== ENCOUNTER → 2022-03-26 | Outpatient (CLI) | payer OTHER ==
[2022-03-26 16:58] LABS: ALBUMIN 3.8 G/DL (3.2-5.2); ALKALINE PHOSPHATASE 79 U/L (46-116); ALT/SGPT 39 U/L (7.0-40); AST/SGOT 20 U/L (<34); BILIRUBIN,TOTAL 0.4 MG/DL (0.3-1.2); BLOOD UREA NITROGEN 17 MG/DL (9-23); CALCIUM LEVEL 9.3 MG/DL (8.5-10.1); CARBON DIOXIDE LEVEL 24 MMOL/L (20-31); CHLORIDE LEVEL 112 MMOL/L (98-107); CHOLESTEROL LEVEL 126 MG/DL (<200); CHOLESTEROL RISK RATIO 5.14 (<5); CREATININE FOR GFR 0.75 MG/DL (0.55-1.30); GLOMERULAR FILTRATION RATE > 60.0 (>51); GLUCOSE, FASTING 118 MG/DL (60-100); HDL CHOLESTEROL 24.5 MG/DL (>40); LDL CHOLESTEROL 61.1 MG/DL (<100); NON-HDL-C 102 MG/DL; SODIUM LEVEL 142 MMOL/L (136-145); TOTAL PROTEIN 6.8 G/DL (5.7-8.2); TRIGLYCERIDES LEVEL 202 MG/DL (<150)
[2022-03-26 17:41] LABS: HEMOGLOBIN A1c 5.6 % (4.0-6.0)
== END ==
LOC: M WUC 11:31
PROVIDERS: ATTEND Internal Medicine
DX: E78.5 Hyperlipidemia, unspecified (principal); E11.9 Type 2 diabetes mellitus without complications

== ENCOUNTER → 2022-03-31 | Outpatient (CLI) | payer OTHER | LOC: M LABSMTC 10:32 | PROVIDERS: ATTEND Anesthesiology | DX: Z01.812 Encounter for preprocedural laboratory examination (principal); Z11.52 Encounter for screening for COVID-19 ==

== ENCOUNTER → 2022-03-31 | Outpatient (CLI) | payer OTHER | LOC: M LABSMTC 11:15 | PROVIDERS: ATTEND Anesthesiology | DX: Z53.9 Procedure and treatment not carried out, unspecified reason (principal) ==

== ENCOUNTER 2022-04-05 06:36 | Day surgery (SDC) | payer OTHER ==
[~2022-04-05] VITALS: Ht 162.6 cm; Wt 109.8 kg
[~2022-04-05 06:36] MED LIST changes: +NS 1,000 ML IV ONE
[2022-04-05] MEDS ORDERED: propofoL 200 MG/20 ML VIAL As Ordered ONE (07:01)
[2022-04-05] MEDS ORDERED: METOCLOPRAMIDE INJ 10MG/2ML VIAL As Ordered ONE (07:45)
[2022-04-05] MEDS ORDERED: LIDOCAINE 2% 100MG/5ML SDV (FOR ANES.) As Ordered ONE (07:45)
[2022-04-05 08:10] VITALS: BP 122/72
== END 2022-04-05 08:23 | disposition home or self-care (01) ==
LOC: M OPP 06:36
PROVIDERS: ATTEND Internal Medicine Gastroenterology
DX: Z12.11 Encounter for screening for malignant neoplasm of colon (principal); E11.9 Type 2 diabetes mellitus without complications; I10 Essential (primary) hypertension; E78.00 Pure hypercholesterolemia, unspecified; G43.909 Migraine, unspecified, not intractable, without status migrainosus; Z87.891 Personal history of nicotine dependence; Z87.19 Personal history of other diseases of the digestive system; Z86.69 Personal history of other diseases of the nervous system and sense organs; Z79.02 Long term (current) use of antithrombotics/antiplatelets; Z79.51 Long term (current) use of inhaled steroids; Z79.84 Long term (current) use of oral hypoglycemic drugs; Z79.899 Other long term (current) drug therapy; Z88.0 Allergy status to penicillin; Z88.3 Allergy status to other anti-infective agents
CPT/HCPCS: 45378; J2765

== ENCOUNTER → 2022-05-24 | Outpatient (CLI) | payer OTHER ==
[~2022-05-24] MED LIST changes: +MONT-5 PO; -NS 1,000 ML IV ONE; -SING10TA32 PO
[2022-05-24 17:34] LABS: HEMATOCRIT 36.9 % (36.0-47.0); HEMOGLOBIN 12.2 g/dl (12.0-15.5); MEAN CORPUSCULAR HEMOGLOBIN 31.7 pg (27.0-33.0); MEAN CORPUSCULAR HGB CONC 33.1 g/dl (32.0-36.5); MEAN CORPUSCULAR VOLUME 95.8 fl (80.0-96.0); PLATELET COUNT, AUTOMATED 302 10^3/uL (150-450); RED BLOOD COUNT 3.85 10^6/uL (4.00-5.40); WHITE BLOOD COUNT 9.4 10^3/uL (4.0-10.0)
== END ==
LOC: M WUC 14:04
PROVIDERS: ATTEND Internal Medicine
DX: R04.0 Epistaxis (principal)

== ENCOUNTER → 2022-12-27 | Outpatient (CLI) | payer OTHER ==
[~2022-12-27] MED LIST changes: +AMIT25TA19 PO; -ATOR1TAB21; +ATOR1TAB21 PO; -CETI10TA; +CETI10TA PO; +DULO1CAP6 PO; -FENO135C6; +FENO135C6 PO; +MECL-209 PO; -MECL1TAB31 PO; +MONT10TA97 PO; +OMEP-173 PO
[2022-12-27 17:18] LABS: HEMOGLOBIN 12.6 g/dl (12.0-15.5); MEAN CORPUSCULAR HEMOGLOBIN 30.1 pg (27.0-33.0); MEAN CORPUSCULAR HGB CONC 32.3 g/dl (32.0-36.5); MEAN CORPUSCULAR VOLUME 93.3 fl (80.0-96.0); PLATELET COUNT, AUTOMATED 255 10^3/uL (150-450); RED BLOOD COUNT 4.18 10^6/uL (4.00-5.40); WHITE BLOOD COUNT 8.7 10^3/uL (4.0-10.0)
[2022-12-27 17:32] LABS: ALBUMIN 3.6 G/DL (3.2-5.2); ALKALINE PHOSPHATASE 123 U/L (46-116); ALT/SGPT 93 U/L (7.0-40); AST/SGOT 90 U/L (<34); BILIRUBIN,TOTAL 0.3 MG/DL (0.3-1.2); BLOOD UREA NITROGEN 16 MG/DL (9-23); CALCIUM LEVEL 9.7 MG/DL (8.5-10.1); CARBON DIOXIDE LEVEL 25 MMOL/L (20-31); CHLORIDE LEVEL 102 MMOL/L (98-107); CHOLESTEROL LEVEL 145 MG/DL (<200); CHOLESTEROL RISK RATIO 3.34 (<5); GLOMERULAR FILTRATION RATE > 60.0 (>51); GLUCOSE, FASTING 389 MG/DL (60-100); HDL CHOLESTEROL 43.3 MG/DL (>40); LDL CHOLESTEROL 54.5 MG/DL (<100); NON-HDL-C 101.7 MG/DL; POTASSIUM SERUM 4.1 MMOL/L (3.5-5.1); SODIUM LEVEL 138 MMOL/L (136-145); TRIGLYCERIDES LEVEL 236 MG/DL (<150)
[2022-12-27 18:12] LABS: HEMOGLOBIN A1c 10.9 % (4.0-6.0)
== END ==
LOC: M WUC 14:43
PROVIDERS: ATTEND Internal Medicine
DX: E78.5 Hyperlipidemia, unspecified (principal); E11.9 Type 2 diabetes mellitus without complications

== ENCOUNTER → 2022-12-29 | Outpatient (CLI) | payer OTHER | LOC: M WHC 13:14 | PROVIDERS: ATTEND Internal Medicine | DX: Z12.31 Encounter for screening mammogram for malignant neoplasm of breast (principal) ==

== ENCOUNTER → 2024-04-27 | Outpatient (CLI) | payer OTHER | LOC: M WHC 12:59 | PROVIDERS: ATTEND Internal Medicine | DX: Z12.31 Encounter for screening mammogram for malignant neoplasm of breast (principal) ==

== ENCOUNTER → 2024-06-27 | Outpatient (CLI) | payer OTHER ==
[~2024-06-27] MED LIST changes: +TOPI-257 PO; -TOPI100T9 PO
[2024-06-27 14:43] LABS: BASO # 0.1 10^3/uL (0.0-0.2); EOS # 0.3 10^3/uL (0.0-0.5); EOS % 4.1 % (0.0-3.0); HEMATOCRIT 34.2 % (36.0-47.0); HEMOGLOBIN 10.6 g/dl (12.0-15.5); LYMPH # 1.9 10^3/uL (1.5-5.0); MEAN CORPUSCULAR HEMOGLOBIN 30.9 pg (27.0-33.0); MEAN CORPUSCULAR VOLUME 99.7 fl (80.0-96.0); MONO # 0.4 10^3/uL (0.0-0.8); MONO % 6.4 % (2.0-8.0); NEUTROPHILS # 4.2 10^3/uL (1.5-8.5); NEUTROPHILS % 61.1 % (36.0-66.0); PLATELET COUNT, AUTOMATED 277 10^3/uL (150-450); RED BLOOD COUNT 3.43 10^6/uL (4.00-5.40); WHITE BLOOD COUNT 6.9 10^3/uL (4.0-10.0)
[2024-06-27 15:07] LABS: HEMOGLOBIN A1c 4.7 % (4.0-6.0)
[2024-06-27 15:19] LABS: ALBUMIN 3.7 G/DL (3.2-5.2); BILIRUBIN,TOTAL 0.4 MG/DL (0.3-1.2); CHOLESTEROL RISK RATIO 5.58 (<5); CREATININE FOR GFR 0.77 MG/DL (0.55-1.30); GLOMERULAR FILTRATION RATE 89.9 (>51); HDL CHOLESTEROL 23.1 MG/DL (>40); LDL CHOLESTEROL 82.9 MG/DL (<100); NON-HDL-C 105.9 MG/DL; POTASSIUM SERUM 3.8 MMOL/L (3.5-5.1); TOTAL PROTEIN 6.5 G/DL (5.7-8.2)
== END ==
LOC: M WUC 11:55
PROVIDERS: ATTEND Internal Medicine
DX: E11.9 Type 2 diabetes mellitus without complications (principal); E78.5 Hyperlipidemia, unspecified